=== PATIENT | male | born 1960 | race Caucasian/White ===

== ENCOUNTER → 2017-12-31 | Outpatient (CLI) | payer BC ==
--- NOTE | 2018-01-05 10:39 | RSPPFT ---
DATE OF PROCEDURE: 12/31/17 COMMENTS: Spirometry demonstrates an FEV1 of 1.1 at 35% of predicted, FVC of 2.8 at 70%, FEV1/FVC ratio is 40%. The FEF 25-75 is 11% of predicted. Post-bronchodilator study demonstrated significant improvements indicating some reversibility. Lung volumes demonstrated a raised RV/TLC ratio suggesting hyperinflation and air trapping and confirming obstructive disease. Diffusion capacity is mildly reduced. Flow volume loops indicate severe obstruction. IMPRESSION: 1. Severe obstructive disease. 2. Significant improvements following use of bronchodilator indicating reversibility. 3. Mild reduction in diffusion capacity. 4. Room air arterial blood gas demonstrated a pH of 7.4, PCO2 of 41, PO2 of 87 and a normal Acid base balance.
== END ==
LOC: PHRSP 11:05
DX: R05 Cough (principal); J44.9 Chronic obstructive pulmonary disease, unspecified; R06.00 Dyspnea, unspecified; E03.9 Hypothyroidism, unspecified
CPT/HCPCS: 36600; 82805; 94060; 94726; 94729